=== PATIENT | female | born 1980 | race Caucasian/White ===

== ENCOUNTER 2025-08-02 11:10 | Emergency (ER) | payer OTHER ==
[2025-08-02] MEDS ORDERED: HYDROcodone/Acetaminophen 10/325 mg Tablet ONE (12:43)
[2025-08-02] MEDS ORDERED: Ketorolac Tromethamine 30 MG (1 mL) VIAL ONE (12:43)
== END 2025-08-02 13:53 | disposition home or self-care (01) ==
LOC: ERS 11:10
DX: M51.24 Other intervertebral disc displacement, thoracic region (principal); M54.2 Cervicalgia; F17.210 Nicotine dependence, cigarettes, uncomplicated
CPT/HCPCS: 72125; 72128; 96372; J1885